=== PATIENT | female | born 1980 | race Two or more races ===

== ENCOUNTER 2022-07-26 15:44 | Emergency (ER) | payer SELFPAY ==
[~2022-07-26] VITALS: Ht 160 cm; Wt 63.0 kg
[2022-07-26 16:39] VITALS: BP 150/90
[2022-07-26] MEDS ORDERED: ACE3T PO (17:50)
[2022-07-26] MEDS ORDERED: CYCL-837 PO (17:50)
== END 2022-07-26 18:03 | disposition home or self-care (01) ==
LOC: EDBD 15:44 → ER 15:48
DX: S39.012A Strain of muscle, fascia and tendon of lower back, initial encounter (principal); S09.90XA Unspecified injury of head, initial encounter; Z86.73 Personal history of transient ischemic attack (TIA), and cerebral infarction without residual deficits; W19.XXXA Unspecified fall, initial encounter; Y93.89 Activity, other specified; Y92.89 Other specified places as the place of occurrence of the external cause; Y99.8 Other external cause status
CPT/HCPCS: 70450; 72125; 72131; 93005

== ENCOUNTER 2025-03-19 17:22 | Emergency (ER) | payer OTHER, BC, MEDICAID ==
[~2025-03-19] VITALS: Ht 162.6 cm; Wt 63.3 kg
[~2025-03-19 17:22] MED LIST: ACE3T PO; CYCL-837 PO
[2025-03-19] MEDS: SODIUM CHLORIDE 0.9% 1,000 ML IV ONE (18:00)
--- NOTE | 2025-03-19 18:03 | ED.PDOC ---
Psychiatric HPI Comments 45 y/o F, BIBA, with PMHx of HTN, arthritis, and upper lumbar stenosis presents to the ED for CC of overdose. EMS reports, patient is coming from home where she ingested approximately x10-15 325mg Aspirin Tablets in an attempt to take her own life. Patient states, she took tablets because she is tired of life, medical problems, and constantly being in pain. Per EMS, patient states her plan was to "Go to sleep and ". Patient denies prior suicidal attempts, homicidal ideation, visual hallucinations, or auditory hallucinations. No other symptoms or modifying factors present at this time. Chief Complaint: Overdose Time Seen by MD: 17:45 Reviewed Notes: Nurses Notes, Monitor Tech Notes, Medications, Allergies Information Source: Patient, Emergency Med Personnel Mode of Arrival: EMS Severity: Able to Care for Self Severity of Pain: None Severity of Mental Status: Moderate Severity of Symptoms: Moderate Timing: Minutes Duration: Since onset Presents with: Suicidal Ideation Attempt: Ingestion Ingestion: Intentional Circumstance: None Current substance abuse: None Stressors: None History of: None Quality: Hopelessness Location of pain or injury: None Associated signs and symptoms: None Past Medical History PAST MEDICAL HISTORY: Arthritis, HTN Past Medical History (Other): upper lumbar stenosis Surgical History: Denies all surgeries SHIRT CLOSER History: No Pertinent SHIRT CLOSER History Family History Family History: Unknown Social History Smoker: Non-Smoker Alcohol: Denies ETOH Use Drugs: Denies Drug Use Lives In: Home Constitutional: denies: chills, diaphoresis, fatigue, fever, malaise, sweats, weakness, others EENTM: denies: blurred vision, double vision, ear bleeding, ear discharge, ear drainage, ear pain, ear ringing, eye pain, eye redness, hearing loss, mouth pain, mouth swelling, nasal discharge, nose bleeding, nose congestion, nose pain, photophobia, tearing, throat pain, throat swelling, voice changes, others Respiratory: denies: cough, hemoptysis, orthopnea, SOB at rest, shortness of breath, SOB with excertion, stridor, wheezing, others Cardiovascular: denies: chest pain, dizzy spells, diaphoresis, Dyspnea on exertion, edema, irregular heart beat, left arm pain, lightheadedness, palpitations, PND, syncope, others Gastrointestinal: denies: abdomen distended, abdominal pain, blood streaked bowels, constipated, diarrhea, dysphagia, difficulty swallowing, hematemesis, melena, nausea, poor appetite, poor fluid intake, rectal bleeding, rectal pain, vomiting, others Genitourinary: denies: abnormal vagina bleeding, burning, dyspareunia, dysuria, flank pain, frequency, hematuria, incontinence, pain, , vagina discharge, urgency, others Neurological: denies: dizziness, fainting, headache, left sided numbness, left sided weakness, numbness, paresthesia, pre-existing deficit, right sided numbness, right sided weakness, seizure, speech problems, tingling, tremors, weakness, others Musculoskeletal: denies: back pain, gout, joint pain, joint swelling, muscle pain, muscle stiffness, neck pain, others Integumetry: denies: bruises, change in color, change in hair/nails, dryness, laceration, lesions, lumps, rash, wounds, others Allergic/Immunocompromised: denies: Difficulty Healing, Frequent Infections, Hives, Itching, others Hematologic/Lymphatic: denies: anemia, blood clots, easy bleeding, easy bruising, swollen glands, others Endocrine: denies: excessive hunger, excessive sweating, excessive thirst, excessive urination, flushing, intolerance to cold, intolerance to heat, unexplained weight gain, unexplained weight loss, others Psychiatric: reports: suicidal; denies: anxiety, bipolar disorder, depression, hopeless, panic disorder, schizophrenia, sleepless, others Physical Exam General Appearance: No Apparent Distress, Normal HEENT: Normal ENT Inspection, Pharynx Normal, TMs Normal Neck: Full Range of Motion, Non-Tender, Normal, Normal Inspection Respiratory: Chest Non-Tender, Lungs Clear, No Accessory Muscle Use, No Respiratory Distress, Normal Breath Sounds Cardiovascular: No Edema, No Murmur, No Gallop, Normal Peripheral Pulses, Regular Rate/Rhythm Breast Exam: Deferred Gastrointestinal: No Organomegaly, Non Tender, No Pulsatile Mass, Normal Bowel Sounds, Soft Genitalia: Deferred Pelvic: Deferred Rectal: Deferred Extremities: No calf tenderness, Normal capillary refill, Normal inspection, Normal range of motion, Non-tender, No pedal edema Musculoskeletal : Apperance: Normal Neurologic: Alert, treasury agent II-XII nml as Tested, No Motor Deficits, Normal Affect, Normal Mood, No Sensory Deficits Cerebellar Function: Normal Reflexes: Normal Skin: Dry, Normal Color, Warm Lymphatic: No Adenopathy Was a procedure done? Was a procedure done?: No Psych Differential Dx Psych. Differential Dx: Anxiety, Bipolar Disorder, Depression, Hopeless, Panic Disorder, Schizoprenia, Suicidal OD Differential Dx: Alcohol Abuse, Anxiety, Drug Overdose, Personality Disorder, Respiratory Failure, Substance Abuse, Suicidal Attempt, Suicidal Gesture Suicidal Differential Dx: Alcohol Abuse, Bipolar Disorder, Depression, Homicidal Intoxication Differential Dx: Electrolyte Imbalance, Encephalopathy, Hepatitis, Intoxication X-Ray, Labs, Meds, VS Vital Signs Date Time Temp Pulse Resp B/P (MAP) Pulse Ox O2 Delivery O2 Flow Rate FiO2 03/20/25 00:00 85 03/19/25 20:00 99 03/19/25 19:30 89 17 95 Room Air* 0 21 03/19/25 19:30 97.9 89 17 156/92 (113) 95 97.9 03/19/25 18:58 19 98 Room Air* 0 21 03/19/25 18:46 96 03/19/25 18:23 97.9 90 19 164/97 (119) 98 97.9 03/19/25 17:28 98.8 115 20 169/69 (102) 100 98.8 03/19/25 17:25 101 Lab Test 03/20/25 04:00 03/19/25 23:49 03/19/25 21:03 03/19/25 18:09 Range/Units Sodium Level 145 144 144 136-145 mmol/L Potassium Level 3.9 4.0 4.0 3.5-5.1 mmol/L Chloride Level 113 H 112 H 111 H 98-107 mmol/L Carbon Dioxide Level 23 23 22 20-31 mmol/L Anion Gap 9 9 11 5-15 Blood Urea Nitrogen 13 10 10 9-23 mg/dL Creatinine 0.78 0.97 0.88 0.550-1.02 mg/dL Glomerular Filtration Rate Calc 94 73 82 >90 mL/min BUN/Creatinine Ratio 16.7 10.3 11.4 10.0-20.0 Serum Glucose 101 103 112 H 74-106 mg/dL Calcium Level 8.1 L 9.1 8.9 8.7-10.4 mg/dL Salicylates Level 22.4 29.0 28.0 -30 mg/dL Urine Test Negative Negative Urine Opiates Screen Neg NEGATIVE Urine Fentanyl Screen Neg NEGATIVE Urine Barbiturates Screen Neg NEGATIVE Urine Phencyclidine Screen Neg NEGATIVE Urine Amphetamines Screen Neg NEGATIVE Urine Benzodiazepines Screen Neg NEGATIVE Urine Cocaine Screen Neg NEGATIVE Urine Cannabinoids Screen Neg NEGATIVE Test 03/19/25 18:07 03/19/25 18:05 Range/Units White Blood Count 6.5 4.4-10.8 10^3/uL Red Blood Count 4.41 4.0-5.20 10^6/uL Hemoglobin 13.8 12.2-16.2 g/dL Hematocrit 40.9 36.0-46.0 % Mean Corpuscular Volume 92.8 80.0-100.0 fL Mean Corpuscular Hemoglobin 31.3 28.0-32.0 pg Mean Corpuscular Hemoglobin Concent 33.8 32.0-36.0 g/dL Red Cell Distribution Width 14.0 11.8-14.3 % Platelet Count 254 140-450 10^3/uL Mean Platelet Volume 7.6 6.9-10.8 fL Neutrophils (%) (Auto) 56.2 37.0-80.0 % Lymphocytes (%) (Auto) 31.2 10.0-50.0 % Monocytes (%) (Auto) 10.1 0.0-12.0 % Eosinophils (%) (Auto) 1.4 0.0-7.0 % Basophils (%) (Auto) 1.1 0.0-2.0 % Neutrophils # (Auto) 3.7 1.6-8.6 10 ^3/uL Lymphocytes # (Auto) 2.0 0.4-5.4 10 ^3/uL Monocytes # (Auto) 0.7 0-1.3 10 ^3/uL Eosinophils # (Auto) 0.1 0-0.8 10 ^3/uL Basophils # (Auto) 0.1 0-0.2 10 ^3/uL Nucleated Red Blood Cells 0.1 % Sodium Level 143 136-145 mmol/L Potassium Level 4.8 3.5-5.1 mmol/L Chloride Level 108 H 98-107 mmol/L Carbon Dioxide Level 26 20-31 mmol/L Anion Gap 9 5-15 Blood Urea Nitrogen 12 9-23 mg/dL Creatinine 0.80 0.550-1.02 mg/dL Glomerular Filtration Rate Calc 91 >90 mL/min BUN/Creatinine Ratio 15.0 10.0-20.0 Serum Glucose 92 74-106 mg/dL Calcium Level 10.0 8.7-10.4 mg/dL Total Bilirubin 0.3 0.2-1.0 mg/dL Aspartate Amino Transferase (AST) 52 H 13-40 U/L Alanine Aminotransferase (ALT) 30 7-40 U/L Alkaline Phosphatase 104 46-116 U/L Total Protein 7.4 5.7-8.2 g/dL Albumin 4.6 3.2-4.8 g/dL Salicylates Level 19.2 -30 mg/dL Acetaminophen Level < 2.0 L 10.0-20.0 UG/ML Plasma/Serum Blood Alcohol 4.4 <10 mg/dL Blood Gas Specimen Type Venous Blood Gas Sample Site Peripheral line Blood Gas Patient Temperature 37.0 Arterial Blood Date Drawn [id number] Jewel Test N/a Venous Blood pH 7.441 H 7.320-7.430 Venous Blood pCO2 at Patient Temp 35.1 L 38.0-54.0 mmHg Venous Blood pO2 at Patient Temp 38.9 23.0-48.0 mmHg Venous Blood HCO3 23.4 22.0-29.0 mmol/L Venous Bld O2 Saturation (Measured) 75.3 60.0-85.0 % Venous Blood Base Excess -0.3 -2.0-3.0 mmol/L Venous Blood Total Hemoglobin 13.2 12.0-16.0 g/dL Venous Blood Oxyhemoglobin 74.2 0.0-79.0 % Venous Blood Carboxyhemoglobin 0.7 0.5-1.5 % Venous Blood Methemoglobin 0.7 0.0-1.5 % Blood Gas Liter Flow 0.00 Blood Gas Modality Room air Blood Gas Spontaneous Rate 20 FiO2 % 21.0 Specimen Drawn By Jaclyn marie rn Current Medications Medications (Trade) Dose Ordered Sig/Micki Route Start Time Stop Time Status Last Admin Charcoal (Actidose-Aqua) 50 gm ONCE ONCE PO 03/19/25 18:00 03/19/25 18:10 DC 03/19/25 18:43 Sodium Chloride 1,000 ml @ 150 mls/hr Q6H40M ONCE IV 03/19/25 18:00 03/20/25 00:39 DC 03/19/25 18:00 Sodium Chloride 1,000 ml @ 150 mls/hr Q6H40M ONCE IV 03/20/25 01:30 03/20/25 08:09 03/20/25 01:27 X-Ray, Labs, Meds, VS Comment 45-year-old female endorsed to me by Dr. Escalante to follow salicylate trend. Once we see to levels trending down, the patient may be medically cleared for psychiatric evaluation. Salicylate level has dropped from 29 to most recently 22. Patient endorsed to oncoming ED physician to follow-up on next salicylate level. If continuing to down trend, patient will then be medically cleared for psychiatric evaluation. Time of 1ST Reevaluation: 18:15 Reevaluation 1ST: Unchanged Time of 2ND Reevaluation: 20:23 Reevaluation 2ND: Improved Patient Education/Counseling: Diagnosis, Treatment, Prognosis, Need For Follow Up Family Education/Counseling: No Family Present Additional Information The following tests were ordered, and results were reviewed by me: BMP X2, EKG, CBC, DRUG SCREEN, ACETAMINOPHEN, SALICYLATE X3, BLOOD ALCOHOL, TEST Additional Information was gathered from interviewing the following independent historians: EMS I discussed treatment and results with medical personnel and: patient Comprehensive systems review obtained and negative except for what is stated in the HPI. so far pt has not shown signs of toxicity. her initial salicylate level is <35, so bicarb is not indicated. we will continue to repeat asa level q3 hours until 2 down tending results are obtained. if the level is >100, she will need HD. she is not tachypneic, alkalotic, acidotic, nor having any GI symptoms. i will sign out to Dr Vy Domingo at shift change, with telepsych consult once medically cleared Departure 1 Departure Time of Disposition: 05:59 Impression: Primary Impression: Suicidal behavior Qualified Codes: T14.91XA - Suicide attempt, initial encounter Additional Impression: Salicylate overdose Qualified Codes: T39.092A - Poisoning by salicylates, intentional self-harm, initial encounter Disposition: 30 STILL A PATIENT Condition: Stable Critical Care Note Critical Care Time?: Yes (1 hr-critical care time only) Critical care comment: due to concerns for patient's condition deteriorating, the care required my highest level of attention and readiness to intervene. i assessed the patient's condition, ordered the proper tests and treatments, reassessed for response and reviewed the results. i communicated with medical personnel and formulated a plan of care. total critical care time does not include any procedures Stability Stability form required: No Heart Score Heart Score: Heart Score Response (Comments) Value History N/A 0 EKG N/A 0 Age N/A 0 Risk Factors N/A 0 Troponin N/A 0 Total 0 I personally scribed for MARLIN ESCALANTE MD ([email or web address]) on 03/19/25 at 18:03. Electronically submitted by Bessy Valdovinos ([employer]). I personally scribed for MARLIN ESCALANTE MD ([email or web address]) on 03/19/25 at 18:20. Electronically submitted by Bessy Valdovinos ([employer]). I personally scribed for MARLIN ESCALANTE MD ([email or web address]) on 03/19/25 at 19:13. Electronically submitted by Bessy Valdovinos ([employer]). MARLIN ESCALANTE MD March 19, 2025 18:03 RICARDO JHA MD March 20, 2025 06:00
[2025-03-19 18:21] LABS: Basophils # (auto) 0.1 10 ^3/uL (0-0.2); Basophils % (auto) 1.1 % (0.0-2.0); Eosinophils # (auto) 0.1 10 ^3/uL (0-0.8); Eosinophils % (auto) 1.4 % (0.0-7.0); Hematocrit 40.9 % (36.0-46.0); Hemoglobin 13.8 g/dL (12.2-16.2); Lymphocytes % (auto) 31.2 % (10.0-50.0); Mean Corpuscular Hemoglobin 31.3 pg (28.0-32.0); Mean Corpuscular Hgb Conc. 33.8 g/dL (32.0-36.0); Mean Corpuscular Volume 92.8 fL (80.0-100.0); Monocytes # (auto) 0.7 10 ^3/uL (0-1.3); Monocytes % (auto) 10.1 % (0.0-12.0); Neutrophils # (auto) 3.7 10 ^3/uL (1.6-8.6); Neutrophils % (auto) 56.2 % (37.0-80.0); Nucleated Red Blood Cells % 0.1 %; Platelet Count (auto) 254 10^3/uL (140-450); Red Blood Cells 4.41 10^6/uL (4.0-5.20); White Blood Cell 6.5 10^3/uL (4.4-10.8)
[2025-03-19 18:38] LABS: Alanine Aminotransferase 30 U/L (7-40); Albumin 4.6 g/dL (3.2-4.8); Alkaline Phosphatase 104 U/L (46-116); Anion Gap 9 (5-15); Blood Alcohol 4.4 mg/dL (<10); Blood Urea Nitrogen 12 mg/dL (9-23); Carbon Dioxide 26 mmol/L (20-31); Glucose 92 mg/dL (74-106); Potassium 4.8 mmol/L (3.5-5.1); Salicylate 19.2 mg/dL (-30); Sodium 143 mmol/L (136-145); Total Protein 7.4 g/dL (5.7-8.2)
[2025-03-19 18:42] LABS: Aspartate Aminotransferase 52 U/L (13-40); Bilirubin, Total 0.3 mg/dL (0.2-1.0); Chloride 108 mmol/L (98-107)
[2025-03-19 18:43] LABS: Acetaminophen < 2.0 UG/ML (10.0-20.0)
[2025-03-19] MEDS: ACTIVATED CHARCOAL 50 GM/240 ML SOL PO ONE (18:43)
[2025-03-19 18:58] VITALS: RESP 19; O2SAT 98
[2025-03-19 19:00] LABS: Amphetamine Screen, Urine Neg (NEGATIVE); Barbiturate Scree,Urine Neg (NEGATIVE); Benzodiazephine Screen, Urine Neg (NEGATIVE); Cannabinoid Screen, Urine Neg (NEGATIVE); Cocaine Screen, Urine Neg (NEGATIVE); Opiate Scree,Urine Neg (NEGATIVE); Phencyclidine Screen, Urine Neg (NEGATIVE)
--- NOTE | 2025-03-19 19:04 | ECG ---
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
[2025-03-19 19:30] VITALS: PULSE 89; RESP 17; O2SAT 95
[2025-03-19 21:37] LABS: Sodium 144 mmol/L (136-145)
[2025-03-19 21:38] LABS: Anion Gap 11 (5-15); Carbon Dioxide 22 mmol/L (20-31)
[2025-03-19 21:39] LABS: Calcium 8.9 mg/dL (8.7-10.4)
[2025-03-19 21:43] LABS: Chloride 111 mmol/L (98-107)
[2025-03-19 21:44] LABS: BUN/Creatinine Ratio 11.4 (10.0-20.0); Blood Urea Nitrogen 10 mg/dL (9-23)
[2025-03-19 21:46] LABS: Glucose 112 mg/dL (74-106)
[2025-03-20 00:06] LABS: Sodium 144 mmol/L (136-145)
[2025-03-20 00:07] LABS: Anion Gap 9 (5-15); Calcium 9.1 mg/dL (8.7-10.4); Carbon Dioxide 23 mmol/L (20-31)
[2025-03-20 00:12] LABS: BUN/Creatinine Ratio 10.3 (10.0-20.0); Blood Urea Nitrogen 10 mg/dL (9-23); Glucose 103 mg/dL (74-106)
[2025-03-20 00:16] LABS: Chloride 112 mmol/L (98-107)
[2025-03-20] MEDS: SODIUM CHLORIDE 0.9% 1,000 ML IV ONE (01:27)
[2025-03-20 04:37] LABS: Potassium 3.9 mmol/L (3.5-5.1)
[2025-03-20 04:38] LABS: Anion Gap 9 (5-15); Carbon Dioxide 23 mmol/L (20-31)
[2025-03-20 04:43] LABS: BUN/Creatinine Ratio 16.7 (10.0-20.0); Blood Urea Nitrogen 13 mg/dL (9-23); Glucose 101 mg/dL (74-106)
[2025-03-20 04:45] LABS: Calcium 8.1 mg/dL (8.7-10.4); Chloride 113 mmol/L (98-107); Sodium 145 mmol/L (136-145)
[2025-03-20 06:34] LABS: Sodium 145 mmol/L (136-145)
[2025-03-20 06:35] LABS: Anion Gap 10 (5-15); Carbon Dioxide 22 mmol/L (20-31)
[2025-03-20 06:40] LABS: BUN/Creatinine Ratio 18.2 (10.0-20.0); Blood Urea Nitrogen 14 mg/dL (9-23); Glucose 96 mg/dL (74-106)
[2025-03-20 06:42] LABS: Calcium 8.1 mg/dL (8.7-10.4); Chloride 113 mmol/L (98-107)
[2025-03-20 07:20] VITALS: O2SAT 100
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
[2025-03-20 07:59] VITALS: BP 141/91; PULSE 74; RESP 14; TEMP 98.2; O2SAT 100
== END 2025-03-20 07:50 | disposition home or self-care (01) ==
LOC: EDBD 17:22 → EEVIPCON 17:22 → ER 17:22
DX: T39.091A Poisoning by salicylates, accidental (unintentional), initial encounter (principal); T39.015A Adverse effect of aspirin, initial encounter; I10 Essential (primary) hypertension; M19.90 Unspecified osteoarthritis, unspecified site; Y92.89 Other specified places as the place of occurrence of the external cause
CPT/HCPCS: 36415; 36600; 80048; 80053; 80307; 80320; 80329; 81025; 82805; 85025; 93005; 96360; 96361; 99285; J7030

== ENCOUNTER 2025-03-27 04:38 | Emergency (ER) | payer BC, OTHER, MEDICAID | END 2025-03-27 04:51 | disposition left against medical advice (07) | LOC: ER 04:41 | DX: F41.9 Anxiety disorder, unspecified (principal); Z53.21 Procedure and treatment not carried out due to patient leaving prior to being seen by health care provider ==

== ENCOUNTER 2025-10-06 14:11 | Emergency (ER) | payer BC, MEDICAID, OTHER ==
[~2025-10-06] VITALS: Ht 160 cm; Wt 68.1 kg
[2025-10-06 14:14] VITALS: BP 159/86; RESP 18; TEMP 98; O2SAT 98
[2025-10-06 14:31] VITALS: PULSE 90
[2025-10-06] MEDS: ACTIVATED CHARCOAL 50 GM/240 ML SOL PO ONE (14:38)
[2025-10-06 14:59] LABS: Chloride 106 mmol/L (98-107); Potassium 4.4 mmol/L (3.5-5.1)
[2025-10-06 15:00] LABS: Anion Gap 9 (5-15); Carbon Dioxide 30 mmol/L (20-31)
[2025-10-06 15:01] LABS: Calcium 10.0 mg/dL (8.7-10.4)
[2025-10-06 15:04] LABS: Sodium 145 mmol/L (136-145)
[2025-10-06 15:05] LABS: BUN/Creatinine Ratio 22.7 (10.0-20.0); Blood Urea Nitrogen 20 mg/dL (9-23); Glucose 104 mg/dL (74-106)
[2025-10-06 15:09] LABS: Acetaminophen < 2.0 UG/ML (10.0-20.0); Salicylate < 3.0 mg/dL (-30)
[2025-10-06 15:12] LABS: Hematocrit 45.3 % (36.0-46.0); Hemoglobin 15.2 g/dL (12.2-16.2); Mean Corpuscular Hemoglobin 30.8 pg (28.0-32.0); Mean Corpuscular Volume 91.9 fL (80.0-100.0); Nucleated Red Blood Cells % 0.2 %
[2025-10-06 15:16] LABS: Urine Protein, UAD Negative (Negative)
[2025-10-06 15:34] LABS: Barbiturate Scree,Urine Neg (NEGATIVE); Opiate Scree,Urine Neg (NEGATIVE); Phencyclidine Screen, Urine Neg (NEGATIVE)
[2025-10-06 15:35] LABS: Amphetamine Screen, Urine Neg (NEGATIVE); Benzodiazephine Screen, Urine Neg (NEGATIVE); Cannabinoid Screen, Urine Neg (NEGATIVE); Cocaine Screen, Urine Neg (NEGATIVE)
--- NOTE | 2025-10-06 17:20 | ED.PDOC ---
History of Present Illness HPI Comments 45 y/o F presents with c/c of medication overdose. Patient reports on taking, approximately, 14x pills of her 15mg Metarzapine, earlier, today, after becoming distress following a verbal altercation with son. Denies any suicidal or homicidal ideations, auditory or visual hallucinations, or further acute symp toms. Chief Complaint: Suicidal Time Seen by MD: 14:10 Primary Care Provider: RAMONA Paul Notes: Nurses Notes, Medications, Allergies Allergies: Coded Allergies: NO KNOWN ALLERGIES (Unverified , 03/19/25) Home Meds Active Scripts Cyclobenzaprine Hcl (Cyclobenzaprine Hcl) 5 Mg Tab, 1 TAB PO QPM PRN, #14 TAB 0 Refills Prov:HANNAH COWART 07/26/22 Acetaminophen W/ Codeine (Tylenol W/Cod #3) 1 Tab Tb, 1 TAB PO QIDP, #10 TAB 0 Refills Prov:HANNAH COWART 07/26/22 Information Source: Patient Mode of Arrival: Ambulatory Severity: Moderate Timing: Hours Duration: Since onset Prehospital treatment: None Past Medical History PAST MEDICAL HISTORY: Arthritis, HTN Surgical History: Denies all surgeries [employer]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 History Family History Family History: Unknown Social History Smoker: Non-Smoker Alcohol: Denies ETOH Use Drugs: Denies Drug Use Lives In: Home All Other Systems: Reviewed and Negative (Comprehensive review of systems are negative unless stated in HPI) Physical Exam General Appearance: No Apparent Distress, Normal HEENT: Normal ENT Inspection, Pharynx Normal, TMs Normal Neck: Full Range of Motion, Non-Tender, Normal, Normal Inspection Respiratory: Chest Non-Tender, Lungs Clear, No Accessory Muscle Use, No Respiratory Distress, Normal Breath Sounds Cardiovascular: No Edema, No JVD, No Murmur, No Gallop, Normal Peripheral Pulses, Regular Rate/Rhythm Breast Exam: Deferred Gastrointestinal: No Organomegaly, Non Tender, No Pulsatile Mass, Normal Bowel Sounds, Soft Genitalia: Deferred Pelvic: Deferred Rectal: Deferred Extremities: No calf tenderness, Normal capillary refill, Normal inspection, Normal range of motion, Non-tender, No pedal edema Musculoskeletal : Apperance: Normal Neurologic: Alert, rehabilitation services counselor II-XII nml as Tested, No Motor Deficits, Normal Affect, Normal Mood, No Sensory Deficits Cerebellar Function: Normal Reflexes: Normal Skin: Dry, Normal Color, Warm Lymphatic: No Adenopathy Was a procedure done? Was a procedure done?: No Differential Dx Considerations may include: medication drug overdose, suicide, depression, hopeleness, among others X-Ray, Labs, Meds, VS Vital Signs Date Time Temp Pulse Resp B/P (MAP) Pulse Ox O2 Delivery O2 Flow Rate FiO2 10/06/25 14:31 90 10/06/25 14:14 98.0 91 18 159/86 98 98.0 Lab Test 10/06/25 14:30 10/06/25 14:24 Range/Units White Blood Count 5.9 4.4-10.8 10^3/uL Red Blood Count 4.93 4.0-5.20 10^6/uL Hemoglobin 15.2 12.2-16.2 g/dL Hematocrit 45.3 36.0-46.0 % Mean Corpuscular Volume 91.9 80.0-100.0 fL Mean Corpuscular Hemoglobin 30.8 28.0-32.0 pg Mean Corpuscular Hemoglobin Concent 33.5 32.0-36.0 g/dL Red Cell Distribution Width 14.2 11.8-14.3 % Platelet Count 321 140-450 10^3/uL Mean Platelet Volume 7.9 6.9-10.8 fL Neutrophils (%) (Auto) 60.0 37.0-80.0 % Lymphocytes (%) (Auto) 28.6 10.0-50.0 % Monocytes (%) (Auto) 8.8 0.0-12.0 % Eosinophils (%) (Auto) 1.4 0.0-7.0 % Basophils (%) (Auto) 1.2 0.0-2.0 % Neutrophils # (Auto) 3.5 1.6-8.6 10 ^3/uL Lymphocytes # (Auto) 1.7 0.4-5.4 10 ^3/uL Monocytes # (Auto) 0.5 0-1.3 10 ^3/uL Eosinophils # (Auto) 0.1 0-0.8 10 ^3/uL Basophils # (Auto) 0.1 0-0.2 10 ^3/uL Nucleated Red Blood Cells 0.2 % Sodium Level 145 136-145 mmol/L Potassium Level 4.4 3.5-5.1 mmol/L Chloride Level 106 98-107 mmol/L Carbon Dioxide Level 30 20-31 mmol/L Anion Gap 9 5-15 Blood Urea Nitrogen 20 9-23 mg/dL Creatinine 0.88 0.550-1.02 mg/dL Glomerular Filtration Rate Calc 82 >90 mL/min BUN/Creatinine Ratio 22.7 H 10.0-20.0 Serum Glucose 104 74-106 mg/dL Calcium Level 10.0 8.7-10.4 mg/dL Salicylates Level < 3.0 -30 mg/dL Acetaminophen Level < 2.0 L 10.0-20.0 UG/ML Plasma/Serum Blood Alcohol < 3.0 <10 mg/dL Urine Color Light-yellow Yellow Urine Clarity Clear Clear Urine pH 5.0 5.0-9.0 Urine Specific [place] 1.022 1.001-1.035 Urine Protein Negative Negative Urine Ketones Negative Negative Urine Blood Negative Negative /uL Urine Nitrite Negative Negative Urine Bilirubin Negative Negative Urine Urobilinogen Normal Negative mg/dL Urine Leukocyte Esterase Negative Negative /uL Urine RBC 1 0 - 4 /hpf Urine Microscopic WBC 1 0-5 /HPF Urine Squamous Epithelial Cells Few <5 /hpf Urine Bacteria None seen None Seen /hpf Urine Mucus Few None Seen Urine Glucose Normal Normal mg/dL Urine Opiates Screen Neg NEGATIVE Urine Fentanyl Screen Neg NEGATIVE Urine Barbiturates Screen Neg NEGATIVE Urine Phencyclidine Screen Neg NEGATIVE Urine Amphetamines Screen Neg NEGATIVE Urine Benzodiazepines Screen Neg NEGATIVE Urine Cocaine Screen Neg NEGATIVE Urine Cannabinoids Screen Neg NEGATIVE Current Medications Medications (Trade) Dose Ordered Sig/Micki Route Start Time Stop Time Status Last Admin Charcoal (Actidose-Aqua) 50 gm ONCE ONCE PO 10/06/25 14:30 10/06/25 14:31 DC 10/06/25 14:38 Time of 1ST Reevaluation: 14:40 Reevaluation 1ST: Unchanged Patient Education/Counseling: Diagnosis, Treatment, Other (need for ED observation ) Family Education/Counseling: No Family Present SEPSIS Sepsis Screen Date sepsis recognized/suspect: Oct 06, 2025 Time Sepsis recognized/suspect: 1415 Recent Procedure: No On Antibiotic Therapy: No Respiratory Rate >20: No Heart Rate >90: No Temp<36 C (96.8 F) or >38.3 C: No SBP <90 or MAP <65 mmHG: No New Acute Mental Status Change: No Is the patient on CPAP, BIPAP,: No Physician Orders Soc Telemed Psych Consult (10/06/25 14:18) Electrocardigram (10/06/25 14:42) Vital Signs Date Time Temp Pulse Resp B/P (MAP) Pulse Ox O2 Delivery O2 Flow Rate FiO2 10/06/25 14:31 90 10/06/25 14:14 98.0 91 18 159/86 98 98.0 Laboratory Tests Test 10/06/25 14:30 White Blood Count 5.9 10^3/uL (4.4-10.8) Medications Medications Dose Ordered Sig/Micki Route Start Time Stop Time Status Last Admin Dose Admin Charcoal 50 gm ONCE ONCE PO 10/06/25 14:30 10/06/25 14:31 DC 10/06/25 14:38 Departure 1 Departure Time of Disposition: 17:53 (Patient was not actively suicidal at the time. Patient eloped prior to workup completion) Impression: Primary Impression: Adverse effect of mirtazapine Additional Impressions: Overdose Eloped from emergency department Disposition: 07 LEFT AWOL/ELOPED Condition: Serious Critical Care Note Critical Care Time?: No Stability Stability form required: No Heart Score Heart Score: Heart Score Response (Comments) Value History N/A 0 EKG N/A 0 Age N/A 0 Risk Factors N/A 0 Troponin N/A 0 Total 0 I personally scribed for MICKI BARTHOLOMEW MD ([email or web address]) on 10/06/25 at 17:19. Electronically submitted by Andrei Mccormick ([email or web address]). MICKI BARTHOLOMEW MD Oct 06, 2025 17:19
--- NOTE | 2025-10-09 10:28 | ECG ---
[facility] Test Date: 2025-10-06 Test Time: 14:31:30 Pat Name: HECTOR MOY Department: Room: Gender: F Business Coordinator: GP : 1980 Requested By: MICKI BARTHOLOMEW Order Number: [id number] Reading MD: Mani Grace Measurements Intervals [place] Rate: 90 P: 106 OR: 136 QRS: 64 QRSD: 81 T: 26 QT: 350 QTc: 429 Interpretive Statements Sinus rhythm Consider left ventricular hypertrophy Anterior Q waves, possibly due to LVH Electronically Signed On 10-11-2025 19:07:06 PST by Mani Grace Please click the below link to view image of tracing.
== END 2025-10-06 17:54 | disposition left against medical advice (07) ==
LOC: ER 14:11
DX: T43.021A Poisoning by tetracyclic antidepressants, accidental (unintentional), initial encounter (principal); Z79.899 Other long term (current) drug therapy; M19.90 Unspecified osteoarthritis, unspecified site; I10 Essential (primary) hypertension; Y92.89 Other specified places as the place of occurrence of the external cause
CPT/HCPCS: 36415; 80048; 80307; 80320; 80329; 81001; 85025; 93005